=== PATIENT | female | born 2000 | race Asian ===

== ENCOUNTER 2024-03-04 13:25 | Inpatient (IN) ==
[2024-03-04] MEDS ORDERED: SODIUM CHLORIDE 0.9% 1,000 ML IV SCH (13:45)
[2024-03-04 14:01] LABS: Hematocrit (blood only) 35.7 % (37.0-47.0); Hemoglobin 12.8 g/dl (12.0-16.0); Mean Corpuscular Hemoglobin 33.3 pg (25.0-34.0); Mean Corpuscular Hgb Conc 35.9 g/dL (32.0-36.0); Mean Platelet Volume 10.1 fL (9.4-12.4); Platelet Count 244 K/uL (130-400); RDW Coefficient of Variation 12.2 % (11.5-14.5); RDW Standard Deviation 41.8 fL (36.4-46.3); Red Blood Count 3.84 M/uL (4.20-5.40); White Blood Count 14.46 K/ul (4.8-10.8)
[2024-03-04] MEDS: OXYTOCIN 30 UNITS/NSS 30 UNITS/500 ML BAG IV PRN ×2 (14:30→15:49)
[2024-03-04] MEDS: LIDOCAINE 1% LOCAL 20 ML VIAL INFIL PRN (14:40)
--- NOTE | 2024-03-04 14:53 | Delivery Summary ---
Vaginal Delivery Summary Date of Service March 04, 2024 Vaginal Delivery Summary and 2nd Degree LAC Spontaneous vaginal delivery the patient arrived in active labor at 9 cm declined epidural she was 40 weeks gestation artificial rupture of membranes and then she began to push she pushed for only a few contractions delivering a baby in occiput anterior position. She had a second-degree tear local anesthetic was injected and the tear was repaired in the usual fashion total blood loss approximately 1000 mL QBL [facility] Vaginal Delivery Charge Delivery Type Details: and 2nd Degree LAC
[2024-03-04] MEDS ORDERED: bisacodyL 10 MG SUPP PR PRN (15:14)
[2024-03-04] MEDS ORDERED: HYDROCORTISONE ACETATE 25 MG SUPP PR PRN (15:14)
[2024-03-04] MEDS: IBUPROFEN 600 MG TAB PO PRN (16:07)
[2024-03-04] MEDS: BENZOCAINE 20% SPRY 85 APPLN/85 GM CAN EXT PRN (16:13)
[2024-03-04 18:13] VITALS: RESP 16
[2024-03-04] MEDS: LIDOCAINE 2% MPF LOCAL 5 ML VIAL ONE ×2 (18:20→18:21)
[2024-03-04] MEDS: SODIUM CHLORIDE 0.9% 1,000 ML IV ONE (18:45)
[2024-03-04 19:05] LABS: Hematocrit (blood only) 27.3 % (37.0-47.0); Hemoglobin 9.8 g/dl (12.0-16.0)
[2024-03-04] MEDS: DOCUSATE SODIUM 100 MG CAP PO SCH (21:00)
[2024-03-04] MEDS: DIPHTHER/TETAN/PERTUS Vaccine (Tdap, Adol/Adult) 0.5mL IM ONE (22:09)
[2024-03-05 06:09] LABS: Hematocrit (blood only) 22.8 % (37.0-47.0); Hemoglobin 7.9 g/dl (12.0-16.0); Mean Corpuscular Hemoglobin 32.9 pg (25.0-34.0); Mean Corpuscular Hgb Conc 34.6 g/dL (32.0-36.0); Mean Platelet Volume 9.9 fL (9.4-12.4); Platelet Count 178 K/uL (130-400); RDW Coefficient of Variation 12.5 % (11.5-14.5); RDW Standard Deviation 43.8 fL (36.4-46.3); White Blood Count 13.53 K/ul (4.8-10.8)
--- NOTE | 2024-03-05 06:55 | Obstetrical Progress Note ---
Date of Service March 05, 2024 day #1 she did have a significant hemorrhage postdelivery 1000 mL and felt lightheaded last night received a fluid bolus her hemoglobin was 7.9 feels better today although not ready to go home yet will recheck her blood count this morning Assessment & Plan (1) Encounter for follow-up ultrasound of anatomy: day #1 will have to reassess hemoglobin today she did come in with a somewhat low count to begin with at 9.8 she is otherwise well felt lightheaded last night but feels better today Physical Exam Constitutional WD/WN, vitals as above well developed and well nourished Respiratory normal respiratory effort, lungs clear to auscultation normal respiratory effort Cardiovascular RRR, no murmur, no edema Gastrointestinal (Abdomen) normal bowel sounds, soft, nontender, no hepatosplenomegaly Results & Data Vital Signs (Past 12 Hours) Vital Signs Temp Pulse Pulse Resp BP Pulse Ox O2 Del Method 03/05/24 03:05 98.1 F 92 H 16 119/80 98 Room Air 03/04/24 23:00 97.5 F L 94 H 16 100/63 97 Room Air 03/04/24 19:30 98.2 F 89 16 115/74 97 Room Air
[2024-03-05] MEDS: PRENATAL VITAMIN 1 TAB PO SCH (08:57)
[2024-03-05] MEDS: ACETAMINOPHEN 325 MG TAB PO PRN (12:12)
[2024-03-05] MEDS: bisacodyL 5 MG TABEC PO SCH (20:47)
[2024-03-06 06:42] LABS: Hematocrit (blood only) 25.4 % (37.0-47.0); Hemoglobin 8.7 g/dl (12.0-16.0); Mean Corpuscular Hgb Conc 34.3 g/dL (32.0-36.0); Mean Corpuscular Volume 96.2 fL (80.0-100.0); Mean Platelet Volume 9.6 fL (9.4-12.4); Platelet Count 205 K/uL (130-400); RDW Coefficient of Variation 12.8 % (11.5-14.5); RDW Standard Deviation 44.3 fL (36.4-46.3); Red Blood Count 2.64 M/uL (4.20-5.40); White Blood Count 15.54 K/ul (4.8-10.8)
--- NOTE | 2024-03-06 07:19 | Obstetrical Progress Note ---
Date of Service March 06, 2024 Assessment & Plan (1) Encounter for care and examination after delivery: pp2 s/p , doing well. VSS, exam benign and wnl. O+, rub imm. Dc today Subjective Ambulation: ambulating normally Voiding: no voiding problems Passing Gas:: Yes Diet Tolerance:: regular diet Lochia:: Small Feeding Type:: breast feeding Pain well managed with medication Review of Systems Denies fevers, chills, n/v, HAGEN, CP, SOB Physical Exam Constitutional WD/WN, vitals as above no acute distress Respiratory normal respiratory effort, lungs clear to auscultation Cardiovascular RRR, no murmur, no edema Gastrointestinal (Abdomen) Percussion/Palpation: abdomen soft; abdomen nontender fundus firm at umbilicus and NT Musculoskeletal BLE symmetric, nonerythematous, nontender Results & Data Vital Signs (Past 12 Hours) Vital Signs Temp Pulse Resp BP O2 Del Method 03/06/24 03:03 97.5 F L 71 16 116/73 Room Air 03/05/24 20:44 98.2 F 93 H 16 112/74 Room Air
[2024-03-06 08:24] VITALS: BP 108/73; PULSE 82; TEMP 98.2; O2SAT 99
== END 2024-03-06 15:18 | disposition home or self-care (01) | DRG 806 ==
LOC: OPB 13:25 → 4S1 13:27 → 4E2 18:18